=== PATIENT | female | born 2005 | race Hispanic/Latino ===

== ENCOUNTER 2024-04-24 22:31 | Emergency (ER) | payer BC ==
[~2024-04-24] VITALS: Ht 160 cm; Wt 68.0 kg
--- NOTE | 2024-04-24 22:36 | NUR ---
UA CUP PROVIDED
--- NOTE | 2024-04-24 22:41 | ERN ---
ED Note History of Present Illness Stated Complaint: SUPRAPUBIC PAIN Chief Complaint: Abdominal Pain Time Seen by MD: 22:37 Time Seen by Midlevel: 23:00 Dictation: Ms. Lees is a 18 year old female with no reported chronic health issues who presented to the emergency department this morning for evaluation of abdominal pain. She reports severe lower abdominal pain that began approximately 2100 and accompanied by low back pain, nausea and emesis x1. She states that approximately two weeks ago she was seen at Dr. Tellez's office for similar pain. She states that they suspect she has endometriosis and had asked her to stop her control pills. She states at that time they tested her for UTI which was negative. She is pending transvaginal US. Last BM normal 2 days ago. She states she took a dose of tramadol at 9:30 p.m. which was not helpful. She denies having fever, chills, shortness of breath, cough, chest pain, palpitations, constipation, diarrhea, dysuria, vaginal bleeding/discharge, headache, or dizziness. PCP: None CORE JAVA SOFTWARE ENGINEER: Dr. Betsey Tellez Allergies: Coded Allergies: caffeine (Unverified Allergy, Unknown, 04/24/24) Emergency Care NEWSPAPER CORRESPONDENT: None Home Meds Active Scripts Ondansetron (Ondansetron Odt) 4 Mg Tab.rapdis, 4 MG PO Q6HPRN PRN for nausea, #15 TAB 0 Refills Prov:ALKA COHEN NP 04/25/24 Ibuprofen (Ibuprofen) 600 Mg Tablet, 600 MG PO Q6H PRN for PAIN, #15 TAB Prov:ALKA COHEN MOVER 04/25/24 Past Medical History Past Medical History: No Pertinent History Surgical History: None PSYCH History: no pertinent psych hx Social History: Negative, Lives with family LMP: Jan 31, 2024 RN Note Reviewed/Agreed w/PFSH: Yes Review of System Dictation REVIEW OF SYSTEMS: CONSTITUTIONAL: Patient denies fevers, chills, sweats and weight changes. EYES: Patient denies any visual symptoms. EARS, NOSE, AND THROAT: No difficulties with hearing. No symptoms of rhinitis or sore throat. CARDIOVASCULAR: Patient denies chest pains, palpitations, orthopnea and paroxysmal nocturnal dyspnea. RESPIRATORY: No dyspnea on exertion, no wheezing or cough. GI: No diarrhea, constipation, hematochezia or melena. Reports lower abdominal pain and nausea with large emesis x1. : No urinary hesitancy or dribbling. No nocturia or urinary frequency. No ab normal urethral discharge. Denies vaginal bleeding/discharge. Reports low back/bilateral flank pain. States she was told by her project lead that she most likely has endometriosis. MUSCULOSKELETAL: No myalgias or arthralgias. NEUROLOGIC: No chronic headaches, no seizures. Patient denies numbness, tingling or weakness. PSYCHIATRIC: Patient denies problems with mood disturbance. No problems with anxiety. ENDOCRINE: No excessive urination or excessive thirst. DERMATOLOGIC: Patient denies any rashes or skin changes. Initial Vital Sign VS Vital Signs Date Time Temp Pulse Resp B/P (MAP) Pulse Ox O2 Delivery O2 Flow Rate FiO2 04/24/24 22:33 100.4 116 20 133/97 98 Room Air 04/24/24 23:10 0 21 Physical Exam Dictation Vital signs: Reviewed. Temperature 100.4 Constitutional: No acute distress. Non-toxic appearing. Head/Face: Normocephalic, atraumatic. Eyes: Periorbital areas with no swelling, redness, or edema. Lids and lashes are normal. Conjunctival injection is absent. Sclera anicteric. Pupils equal, round, reactive to light. ENT: Pinnas intact and no signs of trauma or erythema. Ear canals clear and no discharge. TMs no erythema. No nasal discharge or bleeding noted. Oropharynx with no exudate, redness, swelling, masses, exudates, or evidence of obstruction. Uvula midline. Mucous membranes moist. Neck: Trachea midline, no masses palpated, and no cervical lymphadenopathy. No swelling. Supple, full range of motion. Chest/Axilla: No tenderness, no crepitus, no paradoxical movement, no retractions. Cardiovascular: Regular rate, regular rhythm, no murmur, no gallops. Symmetric pulses. No peripheral edema. Respiratory: Respirations even and unlabored. Lung sounds clear; no wheezes, rales or rhonchi. Room air SpO2 100% Gastrointestinal: Inspection is normal. No distention is appreciated. Bowel sounds are normal. No mass or organomegaly . There is tenderness RLQ and LLQ;+ guarding Tenderness to bilateral flanks. Has not been able to urinate. Neurological: Normal speech, gross motor function intact, gross sensory function intact. No focal weakness/Paresthesia. Musculoskeletal/Extremities: All extremities have full range of motion, no pain or tenderness on palpation. Symmetric pulses. Integumentary: Intact. Skin is normal color, warm and dry. Cap refill less than 2 seconds. Results (Laboratory/Radiology) Laboratory/Radiology Laboratory Tests Test 04/24/24 22:57 White Blood Count 6.1 K/uL (4.8-10.8) Red Blood Count 3.97 MIL/uL (4.00-5.50) L Hemoglobin 11.1 g/dL (12.0-16.0) L Hematocrit 34.2 % (36-48) L Mean Corpuscular Volume 86.1 fL (80-100) Mean Corpuscular Hemoglobin 28.0 pg (27.0-33.0) Mean Corpuscular Hemoglobin Concent 32.5 g/dL (32.0-36.0) Red Cell Distribution Width 16.6 % (11.0-15.5) H Platelet Count 324 K/uL (130-400) Mean Platelet Volume 10.4 fL (7.5-10.5) Immature Granulocyte % (Auto) 0.3 % (0-1) Neutrophils (%) (Auto) 78.9 % (40.0-77.0) H Lymphocytes (%) (Auto) 15.7 % (21.0-51.0) L Monocytes (%) (Auto) 4.6 % (3.0-13.0) Eosinophils (%) (Auto) 0.2 % (0.0-8.0) Basophils (%) (Auto) 0.3 % (0.0-5.0) Neutrophils # (Auto) 4.8 K/uL (1.8-7.7) Lymphocytes # (Auto) 1.0 K/uL (1.0-4.8) Monocytes # (Auto) 0.3 K/uL (0.1-1.0) Eosinophils # (Auto) 0.01 K/uL (0.00-0.70) Basophils # (Auto) 0.02 K/uL (0.00-0.20) Absolute Immature Granulocyte (auto 0.02 K/uL (0-1) Nucleated Red Blood Cells 0.0 % (0.0-0.19) Sodium Level 136 mmol/L (136-145) Potassium Level 3.9 mmol/L (3.5-5.1) Chloride Level 102 mmol/L (101-111) Carbon Dioxide Level 27 mmol/L (21-32) Blood Urea Nitrogen 7 mg/dL (7-18) Creatinine 0.6 mg/dL (0.5-1.0) Glomerular Filtration Rate Calc 133 mL/min (>90) Random Glucose 100 mg/dL (70-105) Total Calcium 8.9 mg/dL (8.5-10.1) Labs Reviewed?: Yes ED Course ED Course Orders Procedure Category Date Status Time Cbc With Differential LAB 04/24/24 Complete 22:39 Basic Metabolic Panel LAB 04/24/24 Complete 22:39 Urinalysis Profile LAB 04/24/24 In Process 22:39 ,Urine Test LAB 04/24/24 In Process 22:39 Saline Lock Iv CPOE 04/24/24 Transmitted 22:40 Ondansetron 4mg Inj PHA 04/24/24 Complete (Zofran 4mg Inj) 23:00 Hydromorphone 1 Mg PHA 04/24/24 Complete Inj (Dilaudid 1mg Inj 23:00 0.9%Nacl 1000ml (Ns PHA 04/24/24 Complete 1000ml) 23:30 Keep Patient Npo CPOE 04/24/24 Transmitted 23:29 Us Pelvic Non-Ob Comp US 04/24/24 Taken 23:29 Hydromorphone 0.5mg PHA 04/25/24 Complete Syg (Dilaudid 0.5mg 00:30 0.9%Nacl 1000ml (Ns PHA 04/25/24 Complete 1000ml) 00:30 Current Medications Medications (Trade) Dose Ordered Sig/Tc Route PRN Reason Start Time Stop Time Status Last Admin Dose Admin Hydromorphone HCl (DiLAUDid 0.5MG INJ) 0.5 mg ONCE ONCE IVP 04/25/24 00:30 04/25/24 00:31 DC 04/25/24 00:32 Hydromorphone HCl (DiLAUDid 1MG INJ) 1 mg ONCE ONCE IVP 04/24/24 23:00 04/24/24 23:01 DC 04/24/24 22:59 Ondansetron HCl (zoFRAN 4MG INJ) 4 mg ONCE ONCE IVP 04/24/24 23:00 04/24/24 23:01 DC 04/24/24 22:59 Sodium Chloride 1,000 ml @ 0 mls/hr ONCE ONCE IV 04/24/24 23:30 04/24/24 23:32 DC 04/24/24 23:42 Sodium Chloride 1,000 ml @ 0 mls/hr ONCE ONCE IV 04/25/24 00:30 04/25/24 00:31 DC 04/25/24 00:27 Vital Signs Date Time Temp Pulse Resp B/P (MAP) Pulse Ox O2 Delivery O2 Flow Rate FiO2 04/25/24 00:00 89 16 111/73 99 Room Air* 0 21 04/24/24 23:10 99.1 102 16 127/83 99 Room Air* 0 21 04/24/24 22:33 100.4 116 20 133/97 98 Room Air Upon arrival to the emergency department noted tachycardia with heart rate 116 and low-grade temp of 100.4. She was crying complaints of severe lower abdominal/pelvic pain which she rated 9/10. Laboratory findings as noted below. There is no elevation of WBCs. H&H are stable. No electrolyte derangement. UA clear. She received total 2 L NS IV as bolus as well as doses Zofran and Dilaudid IV x2. Pelvic ultrasound was performed; preliminary reports unremarkable. UA Findings were discussed with patient and she was instructed to follow up with Dr. Tellez in office; call tomorrow for follow up appointment Medical Decision Making MDM MDM: Differential diagnosis: Sepsis, endometriosis, ovarian cyst/rupture, UTI Rationale: Tests considered and ordered secondary to shared decision making include: Lab, ultrasound Previous outside records reviewed: Old ER visits. Risk of complication and/or morbidity or mortality of patient management: None Medications-Per medication reconciliation Need for hospitalization: Patient does not meet criteria for hospitalization. Need for emergency major/minor surgery: No There are no social concerns with this patient. Prescription drug management: Zofran ODT, ibuprofen Prescriptions will include symptomatic care Patient's prior external medical records from other ER visits were reviewed by me as indicated. Prior testing and results from previous visits were reviewed. Prior tests were taken into account with medical decision making and resource utilization, independent historian/historians were used to obtain complete medical history. I independently interpreted the test that were performed, results were reviewed by me and considered findings on radiology if ordered. Medical management and examination interpretation discussions were had by me with other qualified healthcare professionals as indicated for the patient's care. DX & DISP Disposition: Discharge Departure Impression: Primary Impression: Pelvic pain Additional Impression: Dehydration Condition: Stable Scripts Acetaminophen with Codeine (Acetaminophen-Cod #3 Tablet) 300 Mg-30 Mg Tablet 1 TAB PO q12 hour PRN PRN for pain, #90 TAB 0 Refills Prov: ALKA COHEN MOVER 04/25/24 Ondansetron (Ondansetron Odt) 4 Mg Tab.rapdis 4 MG PO Q6HPRN PRN for nausea, #15 TAB 0 Refills Prov: ALKA COHEN NP 04/25/24 Ibuprofen (Ibuprofen) 600 Mg Tablet 600 MG PO Q6H PRN for PAIN, #15 TAB Prov: ALKA COHEN MOVER 04/25/24 Additional Instructions: Rest. Drink plenty fluids. May take Zofran ODT every 6 hours as needed for nausea. Ibuprofen every 6 hours as needed for pain. May take tylenol #3 as needed for worsening pain. You will need to follow up with Dr. Tellez's office; call 1st thing this morning for appointment. Return to the emergency department for any worsening of symptoms or concerns. Referrals: SELF,REFERRAL (PCP) BETSEY TELLEZ MD Time of Disposition: 01:35 ALKA COHEN NP Apr 24, 2024 22:41
[2024-04-24] MEDS: ondanSETRON 4MG INJ IVP ONE (22:59)
[2024-04-24] MEDS: hydroMORPHone 1 MG INJ IVP ONE (22:59)
[2024-04-24 23:24] LABS: BASOPHILS # (AUTO) 0.02 K/uL (0.00-0.20); BASOPHILS % (AUTO) 0.3 % (0.0-5.0); EOSINOPHILS # (AUTO) 0.01 K/uL (0.00-0.70); EOSINOPHILS % (AUTO) 0.2 % (0.0-8.0); HEMATOCRIT 34.2 % (36-48); IMMATURE GRANULOCYTE ABSOLUTE 0.02 K/uL (0-1); LYMPHOCYTES % (AUTO) 15.7 % (21.0-51.0); MEAN CORPUSCULAR HGB CONC 32.5 g/dL (32.0-36.0); MEAN CORPUSCULAR VOLUME 86.1 fL (80-100); MONOCYTES # (AUTO) 0.3 K/uL (0.1-1.0); MONOCYTES % (AUTO) 4.6 % (3.0-13.0); NEUTROPHILS # (AUTO) 4.8 K/uL (1.8-7.7); NEUTROPHILS % (AUTO) 78.9 % (40.0-77.0); PLATELET COUNT (AUTO) 324 K/uL (130-400); RED BLOOD CELL COUNT(AUTO) 3.97 MIL/uL (4.00-5.50); RED CELL DISTRIBUTION WIDTH 16.6 % (11.0-15.5); WHITE BLOOD COUNT (AUTO) 6.1 K/uL (4.8-10.8)
[2024-04-24 23:38] LABS: CREATININE 0.6 mg/dL (0.5-1.0); POTASSIUM 3.9 mmol/L (3.5-5.1)
[2024-04-24] MEDS: 0.9%NACL 1000ML 1,000 ML IV ONE (23:42)
[2024-04-25] MEDS: 0.9%NACL 1000ML 1,000 ML IV ONE (00:27)
[2024-04-25] MEDS: hydroMORPHone 0.5 MG SYG (0.5MG/0.5ML) IVP ONE (00:32)
[2024-04-25] MEDS ORDERED: IBUP-2070 PO (01:08)
[2024-04-25] MEDS ORDERED: ONDA-243 PO (01:08)
[2024-04-25 01:24] LABS: APPEARANCE,URINE CLEAR (CLEAR); BILIRUBIN,URINE NEGATIVE (NEGATIVE); COLOR,URINE YELLOW (YELLOW); GLUCOSE, URINE (UA) NEGATIVE (NEGATIVE); KETONES,URINE 150 mg/dL (NEGATIVE); LEUKOCYTE ESTERASE ,URINE NEGATIVE Leu/uL (NEGATIVE); NITRATE,URINE NEGATIVE (NEGATIVE); OCCULT BLOOD,URINE NEGATIVE (NEGATIVE); PH,URINE 5.5 (5.0-8.0); PROTEIN,URINE 20 mg/dL (NEGATIVE)
[2024-04-25 01:27] LABS: ADD UA MICROSCOPIC YES
[2024-04-25 01:28] LABS: MUCUS,URINE MOD LPF (None Seen); RBC,URINE 0-1 /HPF (0-1); SQUAMOUS EPITHELIAL CELL,UR RARE /HPF (0-2)
[2024-04-25 01:32] LABS: HCG,QUALITATIVE URINE NEGATIVE (NEGATIVE)
[2024-04-25] MEDS ORDERED: ACET-2079 PO (01:34)
[2024-04-25 01:48] VITALS: BP 115/75; PULSE 76; RESP 16; TEMP 98.6; O2SAT 98
--- NOTE | 2024-04-25 01:52 | HMCIMG ---
US PELVIC NON-OB COMP HISTORY: Pelvic pain COMPARISON: None TECHNIQUE: Transabdominal pelvic ultrasound study was performed. FINDINGS: The uterus measures 6.3 x 3.1 x 5.4 cm. The right ovary is not seen. The left ovary measures 2.6 x 1.8 x 1.9 cm. Flow is seen in left ovary. Endometrial thickness is 4 mm. The study is limited due to overlying bowel gas. No free fluid is seen in the cul-de-sac. IMPRESSION: 1. No adnexal mass is seen.
== END 2024-04-25 01:50 | disposition home or self-care (01) ==
LOC: EDH 22:31
DX: R10.2 Pelvic and perineal pain (principal); E86.0 Dehydration
CPT/HCPCS: 99284; 96374; 76856; 96375; 80048; 85025; 81001; 81025; 36415; 96361; 96376; J1171 ×2; J2405; J7030

== ENCOUNTER 2024-04-26 21:23 | Emergency (ER) | payer BC ==
[~2024-04-26] VITALS: Ht 160 cm; Wt 67.1 kg
[~2024-04-26 21:23] MED LIST: ACET-2079 PO; IBUP-2070 PO; ONDA-243 PO
[2024-04-26 22:20] LABS: HCG,QUALITATIVE URINE NEGATIVE (NEGATIVE)
[2024-04-26 22:22] LABS: ADD UA MICROSCOPIC YES; APPEARANCE,URINE CLEAR (CLEAR); BILIRUBIN,URINE NEGATIVE (NEGATIVE); COLOR,URINE LIGHT-YELLOW (YELLOW); GLUCOSE, URINE (UA) NEGATIVE (NEGATIVE); KETONES,URINE 100 mg/dL (NEGATIVE); LEUKOCYTE ESTERASE ,URINE NEGATIVE Leu/uL (NEGATIVE); NITRATE,URINE NEGATIVE (NEGATIVE); PH,URINE 5.5 (5.0-8.0); PROTEIN,URINE NEGATIVE (NEGATIVE); UROBILINOGEN,URINE 0.2 mg/dL (0.2-1.0)
[2024-04-26 22:24] LABS: MUCUS,URINE RARE LPF (None Seen); RBC,URINE 0-1 /HPF (0-1); SQUAMOUS EPITHELIAL CELL,UR RARE /HPF (0-2)
--- NOTE | 2024-04-26 22:47 | HMCIMG ---
US PELVIC NON-OB COMP HISTORY: Pelvic pain COMPARISON: None TECHNIQUE: Transabdominal pelvic ultrasound study was performed. FINDINGS: The uterus measures 7.1 x 3.8 x 2.8 cm. The right ovary measures 2.3 x 1.5 cm The left ovary measures 2.1 x 1.5 x 2.2 cm. Endometrial thickness is 2 mm. No free fluid is seen in the cul-de-sac. IMPRESSION: 1. No adnexal mass is seen.
[2024-04-26] MEDS: 0.9%NACL 1000ML 1,000 ML IV ONE (23:49)
[2024-04-26] MEDS: ondanSETRON 4MG INJ IVP ONE (23:49)
--- NOTE | 2024-04-26 23:49 | ERN ---
ED Note History of Present Illness Stated Complaint: C/O LOWER ABD PAIN,RADIATES TO BACK; Chief Complaint: Abdominal Pain Time Seen by MD: 21:27 Time Seen by Midlevel: 21:27 Dictation: The patient is a 18-year-old female with no significant medical history who presents to the emergency department with complaints of suprapubic abdominal pain about an hour prior to arrival. Associated with nausea. Patient reports she has been having this pain and is being evaluated by Dr. Roberth NOLASCO for endometriosis. Reports she has a surgery scheduled for the 5th. Reports he saw him today and it is when they schedule the surgery. Denies any known fevers, constipation, diarrhea, reports some light vaginal spotting and reports she is on control. Denies . Patient was seen here a couple of days ago for same reason. Allergies: Coded Allergies: caffeine (Unverified Allergy, Unknown, 04/24/24) Home Meds Active Scripts Acetaminophen with Codeine (Acetaminophen-Cod #3 Tablet) 300 Mg-30 Mg Tablet, 1 TAB PO q12 hour PRN PRN for pain, #90 TAB 0 Refills Prov:ALKA COHEN PHYSICIAN GENERAL PRACTICE 04/25/24 Ondansetron (Ondansetron Odt) 4 Mg Tab.rapdis, 4 MG PO Q6HPRN PRN for nausea, #15 TAB 0 Refills Prov:ALKA COHEN NP 04/25/24 Ibuprofen (Ibuprofen) 600 Mg Tablet, 600 MG PO Q6H PRN for PAIN, #15 TAB Prov:ALKA COHEN PHYSICIAN GENERAL PRACTICE 04/25/24 Past Medical History Past Medical History: No Pertinent History Surgical History: None Social History: Negative, Lives with family LMP: Mar 01, 2024 RN Note Reviewed/Agreed w/PFSH: Yes Review of System Dictation Constitutional: Negative for fever,chills, and weight loss Eyes: Negative for injury, pain,redness, and discharge ENT: Negative for injury,pain or swelling Cardiovascular: Negative for chest pain, palpitations, and edema Respiratory: Negative for shortness of breath, cough, and wheezing, Abdomen/GI: Negative for vomiting, diarrhea, and constipation positive for lower abdominal pain, nausea Back: Negative for injury and pain : Negative for injury, bleeding and discharge MS/Extremity: Negative for injury and deformity Skin: Negative for rash, and discoloration Neuro: Negative for headache, weakness, numbness, tingling, and seizure Psych: Negative for suicide ideation, homicidal ideation, and hallucinations Initial Vital Sign VS Vital Signs Date Time Temp Pulse Resp B/P (MAP) Pulse Ox O2 Delivery O2 Flow Rate FiO2 04/26/24 21:26 99.9 107 20 137/82 100 Room Air Physical Exam Dictation Vital Signs reviewed General Appearance: Alert, oriented x 3, no acute distress, well developed, nourished. Head and Face: non-traumatic. Eyes: PERRL, pink conjunctivas, eyelid no trauma, anterior chamber with arcus senilis. Ears: Pinnas intact and no signs of trauma or erythema ear canals clear and no discharge TM no erythema Nose: No discharge, no bleeding. Oropharynx: Mouth normal, tongue pink. pharynx clear,no erythema, tonsils no exudates, no abscesses noted, mucous membrane moist Neck: Supple, non-tender, no thyromegaly, no masses, no JVD, no bruits Breast:Deferred Chest:No tenderness, no crepitus, no paradoxical movement, no retractions Lungs:Clear, well-ventilated, symmetric, no rales, no wheezing, no rhonchi, no stridor, good breath sounds bilaterally Heart: Regular rate, regular rhythm, no murmur, no gallops Vascular: no peripheral edema, Abdomen: Soft, positive bowel sounds, nondistended, no guarding, Suprapubic tenderness, no rebound, no masses no hepatomegaly, no splenomegaly, no Rose's sign, no hernias. Rectal: Deferred Genital: Deferred Neurological: Normal speech, motor function intact, sensory function intact Musculoskeletal: Neck nontender, full range of motion, back nontender, full range of motion, Extremities: nontender, full range of motion Skin: Color pink, dry, no turgor, no rash, no lacerations, no abrasions, no contusions. Lymphatic: Deferred Results (Laboratory/Radiology) Laboratory/Radiology Laboratory Tests Test 04/26/24 21:32 04/26/24 23:41 Urine Color LIGHT-YELLOW (YELLOW) Urine Appearance CLEAR (CLEAR) Urine pH 5.5 (5.0-8.0) Urine Specific [place] 1.009 (1.001-1.031) Urine Protein NEGATIVE mg/dL (NEGATIVE) Urine Glucose (UA) NEGATIVE mg/dL (NEGATIVE) Urine Ketones 100 mg/dL (NEGATIVE) H Urine Occult Blood +- (TRACE) (NEGATIVE) H Urine Nitrate NEGATIVE (NEGATIVE) Urine Bilirubin NEGATIVE mg/dL (NEGATIVE) Urine Urobilinogen 0.2 mg/dL (0.2-1.0) Urine Leukocyte Esterase NEGATIVE Eliceo/uL Urine RBC 0-1 /HPF (0-1) Urine WBC 2-5 /HPF (0-1) H Urine Squamous Epithelial Cells RARE /HPF (0-2) Urine Bacteria None /HPF (None Seen) Urine HCG, Qualitative NEGATIVE (NEGATIVE) White Blood Count 10.4 K/uL (4.8-10.8) Red Blood Count 3.88 MIL/uL (4.00-5.50) L Hemoglobin 10.9 g/dL (12.0-16.0) L Hematocrit 33.4 % (36-48) L Mean Corpuscular Volume 86.1 fL (80-100) Mean Corpuscular Hemoglobin 28.1 pg (27.0-33.0) Mean Corpuscular Hemoglobin Concent 32.6 g/dL (32.0-36.0) Red Cell Distribution Width 16.8 % (11.0-15.5) H Platelet Count 342 K/uL (130-400) Mean Platelet Volume 10.4 fL (7.5-10.5) Immature Granulocyte % (Auto) 0.3 % (0-1) Neutrophils (%) (Auto) 76.8 % (40.0-77.0) Lymphocytes (%) (Auto) 17.2 % (21.0-51.0) L Monocytes (%) (Auto) 5.3 % (3.0-13.0) Eosinophils (%) (Auto) 0.1 % (0.0-8.0) Basophils (%) (Auto) 0.3 % (0.0-5.0) Neutrophils # (Auto) 8.0 K/uL (1.8-7.7) H Lymphocytes # (Auto) 1.8 K/uL (1.0-4.8) Monocytes # (Auto) 0.6 K/uL (0.1-1.0) Eosinophils # (Auto) 0.01 K/uL (0.00-0.70) Basophils # (Auto) 0.03 K/uL (0.00-0.20) Absolute Immature Granulocyte (auto 0.03 K/uL (0-1) Nucleated Red Blood Cells 0.0 % (0.0-0.19) Sodium Level 137 mmol/L (136-145) Potassium Level 3.4 mmol/L (3.5-5.1) L Chloride Level 102 mmol/L (101-111) Carbon Dioxide Level 27 mmol/L (21-32) Blood Urea Nitrogen 5 mg/dL (7-18) L Creatinine 0.7 mg/dL (0.5-1.0) Glomerular Filtration Rate Calc 128 mL/min (>90) Random Glucose 91 mg/dL (70-105) Total Calcium 9.4 mg/dL (8.5-10.1) Total Bilirubin 0.3 mg/dL (0.2-1.0) Direct Bilirubin 0.1 mg/dL (0.0-0.3) Aspartate Amino Transf (AST/SGOT) 11 U/L (10-37) Alanine Aminotransferase (ALT/SGPT) 12 U/L (12-78) Alkaline Phosphatase 54 U/L (50-136) Total Protein 8.1 g/dL (6.0-8.3) Albumin 3.7 g/dL (3.5-5.0) Lipase 24 U/L (16-77) REASON: pelvic pain ORDERING PHYSICIAN: MEREDITH RODRIGUEZ PROCEDURE: PELVCOMP - US PELVIC NON-OB COMP US PELVIC NON-OB COMP HISTORY: Pelvic pain COMPARISON: None TECHNIQUE: Transabdominal pelvic ultrasound study was performed. FINDINGS: The uterus measures 7.1 x 3.8 x 2.8 cm. The right ovary measures 2.3 x 1.5 cm The left ovary measures 2.1 x 1.5 x 2.2 cm. Endometrial thickness is 2 mm. No free fluid is seen in the cul-de-sac. IMPRESSION: 1. No adnexal mass is seen. REASON: low abd pain ORDERING PHYSICIAN: MEREDITH RODRIGUEZ PROCEDURE: ABD PEL W - CT ABDOMEN/PELVIS W/CONTRAST CT ABDOMEN/PELVIS W/CONTRAST HISTORY: Abdominal pain COMPARISON: None TECHNIQUE: Multiple sequential axial images of the abdomen and pelvis were obtained from the dome of the diaphragm through symphysis pubis. Patient was given 75 cc of Omnipaque through intravenous route. Oral contrast was not given. FINDINGS: No pleural effusion is seen bilaterally. There is no evidence of parenchymal disease or pulmonary nodule of the visualized lower lungs. Degenerative changes of the thoracolumbar spine are present. The heart is not enlarged. The liver, spleen, adrenal glands and pancreas are unremarkable. There is no evidence of hydronephrosis bilaterally. No evidence of renal stone is seen. Fecal material is seen in the colon. There are normal size retroperitoneal and mesenteric lymph nodes. No ascites is seen. Appendix is not well seen limiting evaluation. There may be bilateral ovarian follicles. Mild mesenteric fat stranding is seen adjacent to the uterus. Clinical correlation is recommended. Pelvic sidewalls are symmetric bilaterally. Bladder is poorly distended. IMPRESSION: 1. Appendix is not well seen limiting evaluation. There may be bilateral ovarian follicles. Mild mesenteric fat stranding is seen adjacent to the uterus. Clinical correlation is recommended. CT was performed with one or more following dose reduction techniques: automated exposure control, adjustment of the mA and kv according to patient's size, or use of a iterative reconstruction technique. Labs Reviewed?: Yes ED Course ED Course Orders Procedure Category Date Status Time Urinalysis Profile LAB 04/26/24 Complete 21:30 ,Urine Test LAB 04/26/24 Complete 21:30 Cbc With Differential LAB 04/26/24 Complete 21:38 0.9%Nacl 1000ml (Ns PHA 04/26/24 Complete 1000ml) 22:00 Morphine 4mg Syg PHA 04/26/24 Complete (Morphine 4mg Syg) 22:00 Ondansetron 4mg Inj PHA 04/26/24 Complete (Zofran 4mg Inj) 22:00 Lipase LAB 04/26/24 Complete 21:38 Basic Metabolic Panel LAB 04/26/24 Complete 21:38 Hepatic Function Panel LAB 04/26/24 Complete 21:38 Us Pelvic Non-Ob Comp US 04/26/24 Resulted 21:59 Ct Abdomen/Pelvis CT 04/27/24 Resulted W/Contrast 00:21 Ketorolac PHA 04/27/24 Complete Tromethamine 30mg/Ml 01:30 Iohexol (Omnipaque) PHA 04/27/24 Complete 01:41 Pelvic Exam Set Up CPOE 04/27/24 Transmitted (Er) 02:20 Chlamydia & Gc Pcr ALEXANDRA 04/27/24 Logged 02:46 Ceftriaxone 1g Vial PHA 04/27/24 In Process (Rocephine 1g Inj) 03:00 Current Medications Medications (Trade) Dose Ordered Sig/Tc Route PRN Reason Start Time Stop Time Status Last Admin Dose Admin Ceftriaxone Sodium (ROCEphine 1G INJ) 1 gm ONCE ONCE IM 04/27/24 03:00 04/27/24 03:01 Iohexol (Omnipaque) 75 ml STK-MED ONCE IV 04/27/24 01:41 04/27/24 01:45 DC Ketorolac Tromethamine (toRADol) 30 mg ONCE ONCE IVP 04/27/24 01:30 04/27/24 01:31 DC 04/27/24 02:18 Morphine Sulfate (morPHINE 4MG SYG) 4 mg ONCE ONCE IVP 04/26/24 22:00 04/26/24 22:01 DC 04/26/24 23:50 Ondansetron HCl (zoFRAN 4MG INJ) 4 mg ONCE ONCE IVP 04/26/24 22:00 04/26/24 22:01 DC 04/26/24 23:49 Sodium Chloride 1,000 ml @ 0 mls/hr ONCE ONCE IV 04/26/24 22:00 04/26/24 22:01 DC 04/26/24 23:49 Vital Signs Date Time Temp Pulse Resp B/P (MAP) Pulse Ox O2 Delivery O2 Flow Rate FiO2 04/26/24 21:26 99.9 107 20 137/82 100 Room Air Medical Decision Making MDM The patient is a 18-year-old female with no significant medical history who presents to the emergency department with complaints of suprapubic abdominal pain about an hour prior to arrival. Associated with nausea. Patient reports she has been having this pain and is being evaluated by Dr. Roberth NOLASCO for endometriosis. Reports she has a surgery scheduled for the . Reports he saw him today and it is when they schedule the surgery. Denies any known fevers, constipation, diarrhea, reports some light vaginal spotting and reports she is on control. Denies . Patient was seen here a couple of days ago for same reason. CBC showed no leukocytosis, mild normocytic anemia, chemistry showed mild hypokalemia, normal renal function, normal liver enzymes, negative lipase, urinalysis with no leukocyte esterase or nitrites, ultrasound revealed no a dnexal mass. CT abdomen showed appendix not well seen limited evaluation, mild mesenteric fat stranding seen adjacent to the uterus. On physical exam patient has tenderness to suprapubic area, pelvic exam revealed adnexal tenderness, dark brown discharge concerning for PID. Patient reports one sexual partner. Patient will be treated antibiotic and instructed to follow up with OBGYN. Patient reports she has an appointment on Thursday for preop for evaluation of endometriosis. Patient in no acute distress. Agrees to follow up with the OBGYN. Differential diagnosis: UTI, ovarian cyst, dehydration, appendicitis Need for hospitalization: Patient does not meet criteria for hospitalization. There are no social concerns with this patient. DX & DISP Disposition: Discharge Departure Impression: Primary Impression: Pelvic pain Additional Impressions: PID (pelvic inflammatory disease), Anemia Condition: Stable Scripts Metronidazole (Metronidazole) 500 Mg Tablet 1 TAB PO BID for 14 Days, #28 TAB 0 Refills Prov: MEREDITH RODRIGUEZ 04/27/24 Doxycycline Hyclate (Doxycycline Hyclate) 100 Mg Capsule 1 CAP PO BID for 14 Days, #28 CAP 0 Refills Prov: MEREDITH RODRIGUEZ 04/27/24 Additional Instructions: Please take your medications as prescribed. Avoid any alcohol while taking your medications. Follow up with your OBGYN for further STI panel. Follow up on your culture results. If symptoms worsen please return to ER. FOLLOW-UP WITH PRIMARY CARE PROVIDER IN 1 TO 2 DAYS. TAKE MEDICATIONS DIRECTED HERE IN THE EMERGENCY ROOM. OKAY TO CONTINUE HOME MEDICATIONS UNLESS OTHERWISE DISCUSSED DURING YOUR VISIT IN THE EMERGENCY ROOM TODAY. RETURN TO YOUR NEAREST EMERGENCY ROOM IF SYMPTOMS WORSEN OR IF THERE IS NO IMPROVEMENT. CALL 911 IF YOU NEED IMMEDIATE ASSISTANCE. TAKE TYLENOL OR MOTRIN [id number] NEEDED AND IF NO CONTRAINDICATIONS ARE PRESENT. INCREASE ORAL HYDRATION. A WOUND CULTURE OR URINE CULTURE WAS ORDERED HERE IN THE EMERGENCY ROOM DEPARTMENT PLEASE FOLLOW-UP WITH PRIMARY CARE PROVIDER AND ADVISE THEM TO GET REPEAT PORTS FROM OUR FACILITY. IF YOU HAD ANY RADHA WRAP/SPLINTS THAT WERE APPLIED HERE, PLEASE DO NOT REMOVE THEM UNTIL YOU SEE YOUR PRIMARY CARE OR SPECIALTY. Referrals: NIXON BAIRD MD (PCP) Time of Disposition: 02:59 I have reviewed the case, and I agree with, Diagnosis and Plan MEREDITH RODRIGUEZ Apr 26, 2024 23:49
[2024-04-26] MEDS: morPHINE 4 MG SYG IVP ONE (23:50)
[2024-04-26 23:54] LABS: BASOPHILS # (AUTO) 0.03 K/uL (0.00-0.20); BASOPHILS % (AUTO) 0.3 % (0.0-5.0); EOSINOPHILS # (AUTO) 0.01 K/uL (0.00-0.70); EOSINOPHILS % (AUTO) 0.1 % (0.0-8.0); HEMATOCRIT 33.4 % (36-48); IMMATURE GRANULOCYTE ABSOLUTE 0.03 K/uL (0-1); LYMPHOCYTES # (AUTO) 1.8 K/uL (1.0-4.8); LYMPHOCYTES % (AUTO) 17.2 % (21.0-51.0); MEAN CORPUSCULAR HEMOGLOBIN 28.1 pg (27.0-33.0); MEAN CORPUSCULAR HGB CONC 32.6 g/dL (32.0-36.0); MEAN CORPUSCULAR VOLUME 86.1 fL (80-100); MONOCYTES # (AUTO) 0.6 K/uL (0.1-1.0); MONOCYTES % (AUTO) 5.3 % (3.0-13.0); NEUTROPHILS % (AUTO) 76.8 % (40.0-77.0); PLATELET COUNT (AUTO) 342 K/uL (130-400); RED BLOOD CELL COUNT(AUTO) 3.88 MIL/uL (4.00-5.50); RED CELL DISTRIBUTION WIDTH 16.8 % (11.0-15.5); WHITE BLOOD COUNT (AUTO) 10.4 K/uL (4.8-10.8)
[2024-04-27 00:08] LABS: CREATININE 0.7 mg/dL (0.5-1.0); POTASSIUM 3.4 mmol/L (3.5-5.1)
[2024-04-27 00:13] LABS: ALBUMIN 3.7 g/dL (3.5-5.0); BILIRUBIN,DIRECT 0.1 mg/dL (0.0-0.3); BILIRUBIN,TOTAL 0.3 mg/dL (0.2-1.0); TOTAL PROTEIN, SERUM 8.1 g/dL (6.0-8.3)
[2024-04-27] MEDS ORDERED: IOHEXOL-350 75 ML VIAL IV ONE (01:41)
--- NOTE | 2024-04-27 02:10 | HMCIMG ---
CT ABDOMEN/PELVIS W/CONTRAST HISTORY: Abdominal pain COMPARISON: None TECHNIQUE: Multiple sequential axial images of the abdomen and pelvis were obtained from the dome of the diaphragm through symphysis pubis. Patient was given 75 cc of Omnipaque through intravenous route. Oral contrast was not given. FINDINGS: No pleural effusion is seen bilaterally. There is no evidence of parenchymal disease or pulmonary nodule of the visualized lower lungs. Degenerative changes of the thoracolumbar spine are present. The heart is not enlarged. The liver, spleen, adrenal glands and pancreas are unremarkable. There is no evidence of hydronephrosis bilaterally. No evidence of renal stone is seen. Fecal material is seen in the colon. There are normal size retroperitoneal and mesenteric lymph nodes. No ascites is seen. Appendix is not well seen limiting evaluation. There may be bilateral ovarian follicles. Mild mesenteric fat stranding is seen adjacent to the uterus. Clinical correlation is recommended. Pelvic sidewalls are symmetric bilaterally. Bladder is poorly distended. IMPRESSION: 1. Appendix is not well seen limiting evaluation. There may be bilateral ovarian follicles. Mild mesenteric fat stranding is seen adjacent to the uterus. Clinical correlation is recommended. CT was performed with one or more following dose reduction techniques: automated exposure control, adjustment of the mA and kv according to patient's size, or use of a iterative reconstruction technique.
[2024-04-27] MEDS: ketOROlac 30MG VIAL (30MG/ML) IVP ONE (02:18)
[2024-04-27] MEDS ORDERED: METR-172 PO (02:58)
[2024-04-27] MEDS ORDERED: DOXY100C5 PO (02:58)
[2024-04-27] MEDS: cefTRIAXone 1G VIAL IM ONE (03:01)
[2024-04-27 03:08] VITALS: BP 122/78; PULSE 94; RESP 18; TEMP 98.5; O2SAT 99
== END 2024-04-27 03:09 | disposition home or self-care (01) ==
LOC: EDH 21:23
DX: R10.2 Pelvic and perineal pain (principal); N73.9 Female pelvic inflammatory disease, unspecified; D64.9 Anemia, unspecified
CPT/HCPCS: 99285; 96374; 76856; 96375 ×2; 80076; 80048; 83690; 85025; 81001; 81025; 36415; 74177; 96372; J7030; J2405; J2270; J1885; J0696; Q9967; 99284

== ENCOUNTER 2024-08-19 16:33 | Emergency (ER) | payer BC ==
[~2024-08-19] VITALS: Ht 160 cm; Wt 72.6 kg
[~2024-08-19 16:33] MED LIST changes: +DOXY100C5 PO; +METR-172 PO
[2024-08-19 16:37] VITALS: TEMP 97.8
[2024-08-19 17:29] LABS: BASOPHILS # (AUTO) 0.04 K/uL (0.00-0.20); BASOPHILS % (AUTO) 0.6 % (0.0-5.0); EOSINOPHILS # (AUTO) 0.14 K/uL (0.00-0.70); EOSINOPHILS % (AUTO) 2.1 % (0.0-8.0); HEMATOCRIT 31.8 % (36-48); IMMATURE GRANULOCYTE ABSOLUTE 0.04 K/uL (0-1); LYMPHOCYTES # (AUTO) 1.8 K/uL (1.0-4.8); LYMPHOCYTES % (AUTO) 25.9 % (21.0-51.0); MEAN CORPUSCULAR HEMOGLOBIN 28.3 pg (27.0-33.0); MEAN CORPUSCULAR VOLUME 85.7 fL (80-100); MONOCYTES # (AUTO) 0.5 K/uL (0.1-1.0); NEUTROPHILS # (AUTO) 4.3 K/uL (1.8-7.7); NEUTROPHILS % (AUTO) 63.8 % (40.0-77.0); PLATELET COUNT (AUTO) 263 K/uL (130-400); RED BLOOD CELL COUNT(AUTO) 3.71 MIL/uL (4.00-5.50); RED CELL DISTRIBUTION WIDTH 14.1 % (11.0-15.5); WHITE BLOOD COUNT (AUTO) 6.8 K/uL (4.8-10.8)
[2024-08-19 17:37] LABS: CARBON DIOXIDE 28 mmol/L (21-32); CHLORIDE 105 mmol/L (101-111); CREATININE 0.7 mg/dL (0.5-1.0); GLOMERULAR FILTR. RATE CALC 128 mL/min (>90); GLUCOSE,RANDOM 116 mg/dL (70-105); POTASSIUM 3.9 mmol/L (3.5-5.1); SODIUM SERUM 142 mmol/L (136-145); UREA NITROGEN, BLOOD 12 mg/dL (7-18)
[2024-08-19 17:51] LABS: ALCOHOL, BLOOD < 3 mg/dL (0-10); CREATINE KINASE, TOTAL 182 U/L (21-232)
[2024-08-19 17:53] LABS: ACETAMINOPHEN < 1 mcg/mL (10-30); SALICYLATE < 2.8 mg/dL (2.8-20.0)
--- NOTE | 2024-08-19 18:01 | NUR ---
SPOKE TO [place] [facility] IN REGARDS TO PATIENT NEEDING EVALUATION
--- NOTE | 2024-08-19 19:02 | ERN ---
General Chief Complaint: Suicidal Ideation Stated Complaint: SUICIDAL THOUGHTS Time Seen by MD: 16:37 History of Present Illness Initial Comments 18-year-old female presents for suicidal ideation. Patient was dropped off by her sister for suicidal thoughts. Patient denies any plan at this time she feels generally down. No hallucinations. She denies any history of suicide attempts in the past. Allergies: Coded Allergies: caffeine (Unverified Allergy, Unknown, 04/24/24) Home Meds Active Scripts Metronidazole (Metronidazole) 500 Mg Tablet, 1 TAB PO BID for 14 Days, #28 TAB 0 Refills Prov:MEREDITH RODRIGUEZ MANAGER HUMAN [employer]ITAL 04/27/24 Doxycycline Hyclate (Doxycycline Hyclate) 100 Mg Capsule, 1 CAP PO BID for 14 Days, #28 CAP 0 Refills Prov:MEREDITH RODRIGUEZ MANAGER HUMAN [employer]ITAL 04/27/24 Acetaminophen with Codeine (Acetaminophen-Cod #3 Tablet) 300 Mg-30 Mg Tablet, 1 TAB PO q12 hour PRN PRN for pain, #90 TAB 0 Refills Prov:ALKA COHEN COUNSELING CASE MANAGER 04/25/24 Ondansetron (Ondansetron Odt) 4 Mg Tab.rapdis, 4 MG PO Q6HPRN PRN for nausea, #15 TAB 0 Refills Prov:ALKA COHEN COUNSELING CASE MANAGER 04/25/24 Ibuprofen (Ibuprofen) 600 Mg Tablet, 600 MG PO Q6H PRN for PAIN, #15 TAB Prov:ALKA COHEN COUNSELING CASE MANAGER 04/25/24 Past Medical History Past Medical History: Other Medical History Other: ENDOMITRIOSIS Past Surgical History: Other Surgical History Other: LAP Social History Social History: Negative, Lives with family Physical Exam General Appearance: (+) mild distress Orientation: (+) alert, (+) oriented x 3 Head/Face Trauma: No Eye: bilateral eye normal inspection, bilateral eye PERRL, bilateral eye EOMI Ear, Nose, Throat: (+) hearing grossly normal, (+) normal ENT inspection Neck: (+) normal inspection, (+) supple Respiratory: (+) chest non-tender, (+) lungs clear Heart: (+) regular, (+) no gallop Vascular: (+) no edema Gastrointestinal: (+) soft, (+) non-tender Results Laboratory and Microbiology Lab and Micro Result Laboratory Tests Test 08/19/24 17:20 08/19/24 19:36 White Blood Count 6.8 K/uL (4.8-10.8) Red Blood Count 3.71 MIL/uL (4.00-5.50) L Hemoglobin 10.5 g/dL (12.0-16.0) L Hematocrit 31.8 % (36-48) L Mean Corpuscular Volume 85.7 fL (80-100) Mean Corpuscular Hemoglobin 28.3 pg (27.0-33.0) Mean Corpuscular Hemoglobin Concent 33.0 g/dL (32.0-36.0) Red Cell Distribution Width 14.1 % (11.0-15.5) Platelet Count 263 K/uL (130-400) Mean Platelet Volume 10.1 fL (7.5-10.5) Immature Granulocyte % (Auto) 0.6 % (0-1) Neutrophils (%) (Auto) 63.8 % (40.0-77.0) Lymphocytes (%) (Auto) 25.9 % (21.0-51.0) Monocytes (%) (Auto) 7.0 % (3.0-13.0) Eosinophils (%) (Auto) 2.1 % (0.0-8.0) Basophils (%) (Auto) 0.6 % (0.0-5.0) Neutrophils # (Auto) 4.3 K/uL (1.8-7.7) Lymphocytes # (Auto) 1.8 K/uL (1.0-4.8) Monocytes # (Auto) 0.5 K/uL (0.1-1.0) Eosinophils # (Auto) 0.14 K/uL (0.00-0.70) Basophils # (Auto) 0.04 K/uL (0.00-0.20) Absolute Immature Granulocyte (auto 0.04 K/uL (0-1) Nucleated Red Blood Cells 0.0 % (0.0-0.19) Sodium Level 142 mmol/L (136-145) Potassium Level 3.9 mmol/L (3.5-5.1) Chloride Level 105 mmol/L (101-111) Carbon Dioxide Level 28 mmol/L (21-32) Blood Urea Nitrogen 12 mg/dL (7-18) Creatinine 0.7 mg/dL (0.5-1.0) Glomerular Filtration Rate Calc 128 mL/min (>90) Random Glucose 116 mg/dL (70-105) H Total Calcium 8.5 mg/dL (8.5-10.1) Total Creatine Kinase 182 U/L (21-232) Serum Test, Qualitative NEGATIVE (NEGATIVE) Salicylates Level < 2.8 mg/dL (2.8-20.0) L Acetaminophen Level < 1 mcg/mL (10-30) L Serum Alcohol < 3 mg/dL (0-10) Urine Opiates Screen NEGATIVE (NEGATIVE) Urine Barbiturates Screen NEGATIVE (NEGATIVE) Urine Phencyclidine Screen NEGATIVE (NEGATIVE) Urine Amphetamines Screen NEGATIVE (NEGATIVE) Urine Benzodiazepines Screen NEGATIVE (NEGATIVE) Urine Cocaine Screen NEGATIVE (NEGATIVE) Urine Marijuana (THC) Screen POSITIVE (NEGATIVE) H MDM Patient to feeling down. Not actively suicidal or homicidal. Withdrawn standard screening labs for substance abuse + lab levels for Tylenol salicylate. Chemistry CBC UA as well. They are all normal except for mild hyperglycemia. Psychiatric screening exam declared the patient is safe for discharge. I discussed patient's THC use and she says it is the only thing that helps with her endometriosis pain. Standard medication and laparoscopic surgery have failed to quell her endometrial pain. I recommended she go back to her cotton ginner to see if there other things they can do. Continued use of THC it healthy. It has recently been linked to increased rates of acute MIs and lung problems. ED Course Orders Procedure Category Date Status Time Cbc With Differential LAB 08/19/24 Complete 17:08 Alcohol, Blood LAB 08/19/24 Complete 17:08 Salicylate LAB 08/19/24 Complete 17:08 Acetaminophen LAB 08/19/24 Complete 17:08 Testing, LAB 08/19/24 Complete Serum Hcg 17:08 Creatine Kinase, Total LAB 08/19/24 Complete 17:08 Basic Metabolic Panel LAB 08/19/24 Complete 17:08 Drug Screen Urine LAB 08/19/24 Complete 17:08 Vital Signs Date Time Temp Pulse Resp B/P (MAP) Pulse Ox O2 Delivery O2 Flow Rate FiO2 08/19/24 22:22 89 16 132/85 99 Room Air* 0 08/19/24 19:38 86 16 128/74 99 Room Air* 0 08/19/24 18:41 79 17 111/67 99 Room Air* 0 08/19/24 16:37 97.9 114 18 122/92 98 Room Air 0 DX & DISP Disposition: Discharge Departure Impression: Primary Impression: Depression Additional Impression: Endometriosis determined by laparoscopy Condition: Stable Additional Instructions: You have been medically cleared to be discharged from the hospital. I understand you use THC to help with the endometrial pain. Long-term THC use can double your risk of acute heart attacks and some lung damage. I wish you could find another way to help with the pain. I understand your tried hormonal therapy and laparoscopic debridement. I understand that your pain returned despite these measures. Perhaps you can talk to your cotton ginner physician for other alternatives. Referrals: NIXON BAIRD MD (PCP) TERRI LORENZANA DO Aug 19, 2024 19:02 MARTÍN JACOB MD Aug 19, 2024 22:20
--- NOTE | 2024-08-19 19:46 | NUR ---
PER [facility] FROM [facility], THERE IS A 1-2 HOUR DELAY FOR EVALUATION.
[2024-08-19 19:51] LABS: AMPHET/METH SCREEN,URINE NEGATIVE (NEGATIVE); BARBITURATE SCREEN, URINE NEGATIVE (NEGATIVE); BENZODIAZEPINES SCREEN,URINE NEGATIVE (NEGATIVE); CANNABINOID SCREEN,URINE POSITIVE (NEGATIVE); COCAINE SCREEN,URINE NEGATIVE (NEGATIVE); OPIATE SCREEN,URINE NEGATIVE (NEGATIVE); PHENCYCLIDINE SCREEN,URINE NEGATIVE (NEGATIVE)
--- NOTE | 2024-08-19 20:33 | NUR ---
SCREENER AT BEDSIDE
--- NOTE | 2024-08-19 21:52 | NUR ---
PER SCREENER, PT DOES NOT MEET CRITERIA.
[2024-08-19 22:22] VITALS: BP 132/85; PULSE 89; RESP 16; O2SAT 99
== END 2024-08-19 22:25 | disposition home or self-care (01) ==
LOC: EEVIPCON 16:33 → EDH 16:33
DX: F32.A Depression, unspecified (principal); Z79.899 Other long term (current) drug therapy
CPT/HCPCS: 99283; 82550; 80048; 80305; 84703; 85025; 36415; G0481